=== PATIENT | female | born 1995 | race Caucasian/White ===

== ENCOUNTER 2018-04-29 09:59 | Emergency (ER) | payer SELFPAY ==
[~2018-04-29] VITALS: Ht 162.6 cm; Wt 60.0 kg
[2018-04-29 10:05] VITALS: BP 125/57; PULSE 89; RESP 16; TEMP 98.2; O2SAT 100
[2018-04-29] MEDS ORDERED: ACETAMINOPHEN/HYDROcodone 325 MG/5 MG TAB PO ONE (10:30)
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
--- NOTE | 2018-04-29 11:02 | RADRPT ---
EXAM DATE: 04/29/2018 10:58 AM EDT AGE/SEX: 22 years / Female INDICATIONS: Pain from twisting motion. CLINICAL DATA: This is the patient's initial encounter. Patient reports that signs and symptoms have been present for 1 day and indicates a pain score of 4/10. MEDICAL/SURGICAL HISTORY: None. None. COMPARISON: No prior [facility] exams available for comparison. FINDINGS: Multiple views of the left knee demonstrate a osseous free fragment identified within the intercondyl ar notch measuring approximately 8 mm. Findings are concerning for possible ACL tear and avulsion inj ury. The osseous structures and straight gross normal alignment. Soft tissues are significant for sev ere soft tissue edema overlying the anterior aspect of the knee. CONCLUSION: Recommend further evaluation with MRI when clinically able to evaluate for possible ACL injury or oth er occult source of the free fragment identified within the knee. Extensive anterior soft tissues are present without abnormal positioning of the patella. Electronically signed by: Isha Macdonald MD 04/29/2018 11:01 AM EDT
[2018-04-29] MEDS ORDERED: NORC5TAB PO (11:14)
== END 2018-04-29 11:33 | disposition home or self-care (01) ==
LOC: NEPD 09:59
DX: M23.91 Unspecified internal derangement of right knee (principal)
CPT/HCPCS: 73564; 99283; E0113